=== PATIENT | female | born 1935 | race Caucasian/White ===

== ENCOUNTER 2019-08-04 09:57 | Day surgery (SDC) | payer MEDICARE, OTHER ==
--- NOTE | 2019-08-04 09:18 | HP ---
DATE OF SURGERY: 08/04/2019 HISTORY OF PRESENT ILLNESS: The patient is an 83 year-old who has history of kidney removal back in November, had prior history of right mastectomy in the past for breast cancer. She had bladder cancer. She is in need of half-way IV access for IV treatments. PAST MEDICAL HISTORY: Bladder cancer. Kidney problems. Hypertension. Sleep apnea. Arthritis. Breast cancer in the past. PAST SURGICAL HISTORY: Knee replacement in the past. Right nephrectomy according to the patient. MEDICATIONS: Ditropan, docusate sodium, flaxseed oil, Allopurinol, aspirin, citalopram, furosemide, Keflex, Klor-Con, levothyroxine, loratadine, melatonin, lansoprazole, Lopressor, Macro-Bid, hydrocodone in the past. ALLERGIES: NKDA. FAMILY HISTORY: Cancer. SOCIAL HISTORY: No smoking or alcohol abuse. REVIEW OF SYSTEMS: Fourteen systems reviewed. Taken from her old records. Pertinent for as noted above. History of transient ischemic attack in the past. 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 She had some atrial fibrillation in the past. No chest pain or palpitations currently. PHYSICAL EXAMINATION: GENERAL: A chronically ill female. HEENT: Sclerae nonicteric. NECK: No JVD. CHEST: Equal excursion. She had a right mastectomy in the past. CVS: Irregular-irregular. ABDOMEN: Soft. EXTREMITIES: No cyanosis. NEURO: Alert. IMPRESSION: Bladder and ureteral cancer in need of long-term IV access for IV treatments, tunnel Port-A-Cath placement. Risks and benefits explained in detail including but not limited to bleeding or infection, risk of thrombosis or pneumothorax, risk of port or catheter fracture or failure possibly requiring removal or replacement, general risk of anesthesia, deep venous thrombosis, risk of cardiopulmonary event given her comorbidities and age. She understands and agrees to the planned procedure, will proceed with outpatient Port-A-Cath placement under MAC anesthesia.
[~2019-08-04 09:57] MED LIST: Lactated Ringers 1,000 ML IV ONE; XYLOCAINE 1% HCL 20 ML MDV ONE
[2019-08-04] MEDS ORDERED: Lactated Ringers 1,000 ML IV ONE (10:17)
[2019-08-04] MEDS ORDERED: Lactated Ringers 1,000 ML IV SCH (10:30)
[2019-08-04] MEDS ORDERED: Ketamine HCl 50 MG/ML ONE (11:31)
[2019-08-04] MEDS ORDERED: DIPRIVAN 200 MG/20 ML IV ONE (11:31)
[2019-08-04] MEDS ORDERED: KEFZOL 1 GM ONE (13:04)
[2019-08-04 15:25] VITALS: BP 160/68; PULSE 80; O2SAT 95
--- NOTE | 2019-08-05 08:03 | XRAY ---
Indication: [id number]-[id number] insertion. Intraoperative fluoroscopy was provided for 3 seconds. Single digital spot image submitted for interpretation demonstrates partially visualized left Port-A-Cath with tip projecting over the SVC. Correlate with intraoperative findings/report.
--- NOTE | 2019-08-05 08:40 | XRAY ---
3 seconds fluoroscopy time in surgery for port placement.
--- NOTE | 2019-08-05 08:55 | OP ---
SURGERY DATE/TIME: 08/04/2019 1300 PREOPERATIVE DIAGNOSIS: History of breast cancer, history of kidney cancer, history of bladder cancer now in need of long-term IV access for IV treatments. POSTOPERATIVE DIAGNOSIS: History of breast cancer, history of kidney cancer, history of bladder cancer now in need of long-term IV access for IV treatments. PROCEDURE: Tunnel Port-A-Cath placement with C-arm fluoroscopy of left subclavian vein. SURGEON: Dr. Anders Marquez. ANESTHESIA: MAC. 1% lidocaine local. ESTIMATED BLOOD LOSS: Minimal. INDICATIONS: As noted above. Risks and benefits explained in detail and not limited to and consent obtained. DESCRIPTION OF PROCEDURE AND FINDINGS: The patient had prior right mastectomy. She is taken to the operating room. MAC anesthesia introduced. Neck and chest prepped and draped in usual sterile fashion. After official time out and no disagreement with planned procedure in Trendelenburg position, 1% Lidocaine local infiltrated. 18 gauge cannulation needle inserted on first pass. Good dark nonpulsatile venous return. Guide wire passed without difficulty followed by anesthetizing tunnel track and port pocket area. A transverse incision made inferior subcu. Port pocket created with aid of cautery. Port secured to the chest wall with Prolene suture x2. Waited 15 or 20 minutes for radiology to be available for C-arm. Eventually when radiology was available and had their equipment turned on, C-arm fluoroscopy accomplished. It should be noted that while waiting on them the dilator was easily passed over the guide wire. The dilator and guide wire removed. Catheter had been fed down break away sheath. With C-arm fluoroscopy confirming the catheter was indeed down the superior vena cava and right atrial area it was pulled back a little bit. Catheter cut to appropriate length, snapped on the port at the hub. The port aspirated dark, nonpulsatile venous return with ease, flushed with heparinized saline with ease. Lung rice were noted to be up bilaterally. Catheter tip was in good location in the distal superior vena cava. A spot film had been taken and saved. It was felt no further x-rays were necessary. The patient tolerated the procedure well. Subcu closed with 3-0 Vicryl, skin closed with 4-0 Vicryl. Cannulation stab wound closed with 4-0 Vicryl. Steri-Strips and sterile dressing applied. The patient tolerated the procedure well. There were no immediate complications. Findings discussed with the family out in the waiting area.
== END 2019-08-04 15:00 ==
LOC: SDC 09:57
PROVIDERS: ATTEND Surgery
DX: Z85.3 Personal history of malignant neoplasm of breast (principal); Z85.528 Personal history of other malignant neoplasm of kidney; Z85.51 Personal history of malignant neoplasm of bladder; I10 Essential (primary) hypertension; G47.30 Sleep apnea, unspecified; Z79.899 Other long term (current) drug therapy
CPT/HCPCS: 71045; 77001; J0690; J1642; J2704